=== PATIENT | male | born 1945 | race Caucasian/White ===

== ENCOUNTER 2018-10-14 09:41 | Day surgery (SDC) | payer OTHER, BC ==
[2018-10-09 14:38] VITALS: BMI 23.0
[2018-10-14] MEDS ORDERED: PROPOFOL 20 ML ONE ×2 (12:04)
[2018-10-14 12:59] VITALS: TEMP 97.8
[2018-10-14 13:35] VITALS: BP 112/70; PULSE 63
== END 2018-10-14 13:35 | disposition home or self-care (01) ==
LOC: FASU-ENDO 09:41
PROVIDERS: ATTEND Internal Medicine Gastroenterology
PROC: 0W3P8ZZ Control Bleeding in Gastrointestinal Tract, Via Natural or Artificial Opening Endoscopic (ICD-10-PCS; principal; 2018-10-14 12:03)
DX: K62.5 Hemorrhage of anus and rectum (principal); K62.7 Radiation proctitis